=== PATIENT | male | born 1980 | race Caucasian/White ===

== ENCOUNTER 2017-07-07 19:24 | Emergency (ER) | payer OTHER ==
--- NOTE | 2017-07-12 08:43 | EDM.PDOC ---
ED HPI GENERAL MEDICAL PROBLEM - General Chief Complaint: Upper Extremity Injury/Pain Stated Complaint: finger injury Time Seen by Provider: 07/07/17 19:25 Source of Information: Reports: Patient History Limitations: Reports: No Limitations - History of Present Illness INITIAL COMMENTS - FREE TEXT/NARRATIVE: Pt. sustained an obvious lateral dislocation of his 5th digit of his L hand when a tire he was working on exploded. Denies any other injury other than what was isolated to the finger. Location: Reports: Upper Extremity, Left - Related Data Allergies Allergy/AdvReac Type Severity Reaction Status Date / Time No Known Allergies Allergy Verified 07/07/17 19:27 Home Meds: Home Meds . [No Known Home Meds] 07/07/17 [History] Past Medical History - Past Health History Medical/Surgical History: Denies Medical/Surgical History ED ROS GENERAL - Review of Systems Review Of Systems: ROS reveals no pertinent complaints other than HPI. : Reports: Other (see HPI) Neurological: Reports: No Symptoms. Denies: Paresthesia ED EXAM, GENERAL - Physical Exam Exam: See Below General Appearance: Alert, WD/WN, No Apparent Distress Extremities: Limited Range of Motion, Other (5th digit was laterally dislocated at the PIP.) Neurological: Alert, Oriented, CN II-XII Intact, Normal Cognition, Normal Gait, Normal Reflexes, No Motor/Sensory Deficits ED GENERAL MEDICAL PROCEDURES - Joint Reduction Site: Finger (L) (light traction was applied to the finger and reduction was achieved. Post reduction radiographs did not reveal any fracture.) Pre-procedure NV status: Normal Post-procedure NV status: Normal Technique: Traction/Counter Traction Number of Attempts: 1 Post-Reduction Imaging: Completely Reduced Joint Reduction Complications: No Course - Vital Signs Last Recorded V/S: Last Vital Signs Temp 36.9 C 07/07/17 19:25 Pulse 83 07/07/17 19:25 Resp 18 07/07/17 19:25 BP 140/77 07/07/17 19:25 Pulse Ox 99 07/07/17 19:25 Departure - Departure Time of Disposition: 20:40 Disposition: Home, Self-Care 01 Condition: Good Clinical Impression: Dislocation of finger PIP joint - Discharge Information Instructions: Finger or Thumb Dislocation, [id number] Referrals: PCP,None [Primary Care Provider] - Forms: ED Department Discharge Additional Instructions: Keep splint of on 14 days, particularly if you are doing to be using your L hand. May remove splint to ice your finger. Follow-up in clinic if increased discomfort, decreased range of motion, etc. Ibuprofen 600mg every 6 to 8 hours as needed for pain.
== END 2017-07-07 20:40 | disposition home or self-care (01) ==
LOC: VM.ED 19:24
DX: S63.287A Dislocation of proximal interphalangeal joint of left little finger, initial encounter (principal); Y99.0 Civilian activity done for income or pay; X58.XXXA Exposure to other specified factors, initial encounter
CPT/HCPCS: 26770; 73120-LT; 73140-F4; 99283